=== PATIENT | male | born 1945 | race Caucasian/White ===

== ENCOUNTER 2017-02-23 09:05 | Day surgery (SDC) | payer MEDICARE ==
--- NOTE | ~2017-02-23 | EGD ---
EGD REPORT [facility] [address] [place] [address] NAME: DONNA HAWTHORNE SR : 47 STATUS : REG [facility] [place] PAT#: [id number] AGE: 72 ADM/REG DATE : 02/23/17 MR#: [id number] REPORT SERV DATE: 02/23/17 DICTATED BY: DONNA DAILEY DATE: 02/23/17 REPORT STATUS : Draft TRANSCRIBED BY: [employer] DATE: 02/23/17 [facility] Center Patient Name: Donna Hawthorne Date of : 1945 Attending MD: DONNA DAILEY MD Procedure Date No Time: 02/23/2017 Procedure: Upper GI endoscopy Indications: Follow-up of Juarez's esophagus Referring MD: JERONIMO TRUJILLO Medicines: as per anesthesia Complications: No immediate complications. Procedure: Pre-Anesthesia Assessment: - ASA Grade Assessment: III - A patient with severe systemic disease. After obtaining informed consent, the endoscope was passed under direct vision. Throughout the procedure, the patient's blood pressure, pulse, and oxygen saturations were monitored continuously. The GIF [id number] was introduced through the mouth, and advanced to the body of the stomach. The upper GI endoscopy was accomplished without difficulty. The patient tolerated the procedure. 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 The maximum longitudinal extent of these mucosal changes was 5 cm in length. A prior Jesus fundoplication was found at the gastroesophageal junction. This was characterized by healthy appearing mucosa. A large amount of food (residue) was found in the cardia and in the gastric body. scope withdrawn Impression: - Esophageal mucosal changes secondary to established long-segment Juarez's disease. - A Jesus fundoplication was found. - A large amount of food (residue) in the stomach. Recommendation: - Low residue diet. - Repeat the upper endoscopy because the bowel preparation was poor. Procedure Code(s): --- Professional --- 95619, 52, Esophagogastroduodenoscopy, flexible, transoral; diagnostic, including collection of EGD REPORT [address] [facility] [place] [address] NAME: DONNA HAWTHORNE SR : [birth year] STATUS : REG [facility] [place] PAT#: [id number] AGE: 72 ADM/REG DATE : 02/23/17 MR#: [id number] REPORT SERV DATE: 02/23/17 DICTATED BY: DONNA DAILEY DATE: 02/23/17 REPORT STATUS : Draft TRANSCRIBED BY: [employer] DATE: 02/23/17 specimen(s) by brushing or washing, when performed (separate procedure) Diagnosis Code(s): --- Professional --- K22.70, Juarez's esophagus without dysplasia Z98.0, Intestinal bypass and anastomosis status CPT copyright 2013 [employer]. All rights reserved. The codes documented in this report are preliminary and upon director of research review may be revised to meet current compliance requirements. DONNA DAILEY MD 02/23/2017 11:30 AM This report has been signed electronically. Number of Addenda: 0 Note Initiated On: 02/23/2017 11:03 AM Scope Withdrawal Time 0 hours 0 minutes 0 seconds [address] [facility] [place] [address]
[~2017-02-23 09:05] MED LIST: ASAB PO; BUM1 PO; COREG3 PO; FLOMAX4 PO; GLUCPH PO; HYDROMET1 ML PO; KDUR20 PO; LIPITOR40 PO; LOTREL1 CA5 PO; NORCO1 TA1 PO; NTG150 SL; PRAVACHOL40 MG PO; PRILO PO; REG PO; WELCHOL 625 MG625 MG OR; ZANTAC150 MG PO; ZESTORETIC1 TA1 PO
== END 2017-02-23 23:59 | disposition home health service (06) ==
LOC: DMU 09:05
PROVIDERS: Internal Medicine Gastroenterology
PROC: 0DJ08ZZ Inspection of Upper Intestinal Tract, Via Natural or Artificial Opening Endoscopic (ICD-10-PCS; principal; 2017-02-23 10:00)
DX: K22.70 Barrett's esophagus without dysplasia (principal); I10 Essential (primary) hypertension; I25.10 Atherosclerotic heart disease of native coronary artery without angina pectoris; G47.33 Obstructive sleep apnea (adult) (pediatric); E11.9 Type 2 diabetes mellitus without complications; M19.90 Unspecified osteoarthritis, unspecified site; Z98.0 Intestinal bypass and anastomosis status; E78.00 Pure hypercholesterolemia, unspecified; K21.9 Gastro-esophageal reflux disease without esophagitis; F41.9 Anxiety disorder, unspecified; I25.2 Old myocardial infarction; Z79.82 Long term (current) use of aspirin; Z79.899 Other long term (current) drug therapy; Z98.41 Cataract extraction status, right eye; Z98.42 Cataract extraction status, left eye; Z96.1 Presence of intraocular lens; Z86.010 Personal history of colon polyps; Z90.49 Acquired absence of other specified parts of digestive tract; Z98.890 Other specified postprocedural states
CPT/HCPCS: 82962